=== PATIENT | female | born 1980 | race Caucasian/White ===

== ENCOUNTER → 2017-10-14 17:00 | Outpatient (CLI) | payer BC, OTHER, SELFPAY ==
[2017-10-15 12:40] LABS: Group B Strep DNA By PCR Negative (Negative); Internal Control PASS; Probe Check PASS; Specimen Processing Control PASS
== END ==
PROVIDERS: Family Provider Family Medicine; PCP Family Medicine; Visit Provider Obstetrics & Gynecology
DX: Z36.85 Encounter for antenatal screening for Streptococcus B (principal)
CPT/HCPCS: 87081; 87653

== ENCOUNTER 2017-11-01 06:00 | Outpatient (CLI) | payer BC, OTHER, SELFPAY ==
[2017-11-01 07:33] VITALS: BMI 32.8
--- NOTE | 2017-11-01 09:14 | OB.TRI.NOTE ---
History of Present Illness Was patient seen by the physician?: Yes Reason For Visit: R/O LABOR Date of Service: 11/01/17 Final TATY Source: US <20 weeks Gestational age: 38+ weeks History of Present Illness: 38+ week intrauterine presents with regular contractions. Denies leaking of fluid. care uneventful. Home Medications Medication Instructions Recorded Labetalol 100 mg PO BID 11/01/17 Prenatabs FA 1 tab PO DAILY 11/01/17 Zoloft 1 tab PO DAILY 11/01/17 Allergies No Known Allergies Allergy (Verified 11/01/17 07:35) NST - FHR Rate Baby A NST Reactive:: Yes Impression/Plan 38+ week intrauterine with false labor. No cervical change after several hours of observation. Contractions subsided. Released to home with routine follow-up and instructions.
== END 2017-11-01 09:30 | disposition home or self-care (01) ==
LOC: WPOUT 06:35 → WP 06:36
PROVIDERS: Family Provider Family Medicine; PCP Family Medicine; Visit Provider Obstetrics & Gynecology
DX: O47.1 False labor at or after 37 completed weeks of gestation (principal); Z3A.38 38 weeks gestation of pregnancy
CPT/HCPCS: 59025; 59050; 99218; G0378

== ENCOUNTER 2017-11-07 06:50 | Inpatient (IN) | payer BC, OTHER, SELFPAY ==
[2017-11-07 08:14] VITALS: BMI 32.9
[2017-11-07 08:20] LABS: ROM Internal Control Test YES-OK TO RESULT pt. (Internal QC)
[2017-11-07 08:22] LABS: ROM Patient Test POSITIVE (Negative)
[2017-11-07] MEDS: Lactated Ringers 1,000 ML 50 ML IV (08:57)
[2017-11-07 09:17] LABS: Hematocrit 36.4 % (37-47); Hemoglobin 12.1 g/dl (12.0-15.0); Mean Corp Hgb Conc 33.2 g/gl (32-36); Mean Corpuscular Hgb 32.2 pg (27.0-32.0); Mean Corpuscular Volume 96.8 fL (81-99); Mean Platelet Vol. 10.1 fl (6.2-12.0); Platelet Count 426 K/mm3 (150-450); RBC Distribution Width CV 13.9 % (11.6-14.6); RBC Distribution Width SD 47.4 fl (35.1-43.9); Red Blood Count 3.76 M/mm3 (4.2-5.4); Scan Indicated on CBC? Y/N NO; White Blood Count 13.4 K/mm3 (4.4-11.0)
[2017-11-07] MEDS: Ondansetron 4 MG/2 ML Vial IV (10:12)
[2017-11-07] MEDS: 0.9% Saline Lock 10 ML Syringe IV (10:12)
[2017-11-07] MEDS: fentaNYL-bupivacaine (epidural) 100 ML BAG EPIDURAL (11:19)
[2017-11-07] MEDS: Oxytocin 30 units/NS 500 ml 30 UNITS/500 ML IV.SOLN 334 UNITS IV (12:10)
--- NOTE | 2017-11-07 12:29 | PCM.OB.VAG ---
- Problem List (1) 39 weeks gestation of Status: Acute (2) Vacuum extractor delivery, delivered Status: Acute Vaginal Delivery Maternal Presentation: Spontaneous Rupture of Membranes Amniotic Membrane Rupture Type: Spontaneous at home Rupture of Membrane time: 11/07/17 0530h Amniotic Fluid Description: Clear Final TATY: 11/09/17 Final TATY Source: US <20 weeks Gestational age: 39 Weeks and 5 Days Bailey doctor who attended delivery (if requested by OB): Alisson Juarez Date of Procedure: 11/07/17 Pre-Operative Diagnosis: 39 5/7wga, SROM Post-Operative Diagnosis: 39 5/7wga, SROM Surgery/ Procedure Performed: Vacuum Assisted Vaginal Delivery Anesthesiologist: Dwayne Hawk Type of Anesthesia: Epidural Description of Procedure: Patient was FD/+3 station. She pushed to +4 station with bradycardia to 80s bpm. I advised her to proceed with vacuum delivery to expedite delivery. I reviewed with patient and spouse risk for scalp edema, scalp laceration, bleeding including cephalohematoma and subgaleal hemorrhage, facture, infection of laceration. She advised me to proceed. The fetus was direct OA. The Kiwi vacuum cap was placed at the flexion point and 500mmHg applied. She pushed over approximately 2 minutes to deliver the head in direct OA. There were no pop offs. The vacuum was released and the rest of the delivered with ease. The infant was placed on the maternal abdomen and stimulated. There was depressed respiratory effort thus the cord was doubly clamped and cut and he was assess further by the Pediatric Hospitalist. A second degree perineal laceration was repaired with 3-0 Vicryl Rapide. The fundus was firm at the umbilicus. There was excellent hemostasis. Presentation: Vertex Placental Delivery Description: Spontaneous Placenta Disposition: [facility] Cord Vessel Description: 3 Vessels Nuchal Cord Compression: Without compression Cord Gases drawn per routine: ABG, VBG Cord Entanglement: None Estimated Blood Loss: 350 mL A gender: Male (1 minute): 8 (5 minute): 9 Episiotomy Description: None Laceration: None Medications given after delivery: IV Pitocin
[2017-11-07] MEDS: Oxytocin 30 units/NS 500 ml 30 UNITS/500 ML IV.SOLN 167 UNITS IV (12:40)
[2017-11-07 16:50] VITALS: BP 111/63; PULSE 88; RESP 14; TEMP 36.5; O2SAT 99
[2017-11-07 20:40] VITALS: BP 130/78; PULSE 98; RESP 18; TEMP 36.7; O2SAT 98
[2017-11-07] MEDS: Famotidine 20 MG Tablet PO (22:28)
[2017-11-07] MEDS: Sertraline 50 MG Tablet PO (22:28)
[2017-11-08 01:00] VITALS: BP 112/79; PULSE 92; RESP 20; TEMP 36.5; O2SAT 97
[2017-11-08] MEDS: Naproxen 250 MG Tablet PO (01:17)
[2017-11-08 04:15] VITALS: BP 111/64; PULSE 82; RESP 16; TEMP 36.1
--- NOTE | 2017-11-08 07:19 | PN.OBGYN_ITS ---
Patient Problems: Active and Suspected Problems 39 weeks gestation of (Acute) Vacuum extractor delivery, delivered (Acute) Subjective: No issues overnight. She asks about continuing her blood pressure medication. She started it at 4-5 months , but believes she should have been on medication even before due to elevated BPs. She is sore, but feels well. is also nursing well. Objective: AVSS - Physical Exam General: Alert, Oriented x3, Cooperative, No apparent distress HEENT: Atraumatic, Normocephalic Lungs: Clear to auscultation, Normal air movement Cardiovascular: Regular rate, Regular Rhythm, Normal S1, Normal S2 Abdomen: Soft, Non Tender, Non-Distended, - - Fundus firm and nontender Extremities: No edema, No Calf Tenderness Neurological: Neuro grossly intact Psych/Mental Status: Normal Affect, Appropriate, Alert and oriented to time, place, person, mood and affect Vital Signs Temp Pulse Resp BP Pulse Ox 97.0 F L 82 16 111/64 97 11/08/17 04:15 11/08/17 04:15 11/08/17 04:15 11/08/17 04:15 11/08/17 01:00 Oxygen Delivery Method Room Air Weight: 87.09 kg Body Mass Index (BMI) 32.9 Intake and Output for Last 24 Hours 11/06/17 11/07/17 11/08/17 23:59 23:59 23:59 Output Total 1300 / 1300 Balance -1300 / -1300 Laboratory Tests Past 24 Hrs 11/07/17 11/07/17 11/07/17 07:50 08:55 08:55 WBC 13.4 H RBC 3.76 L Hgb 12.1 Hct 36.4 L MCV 96.8 MCH 32.2 H MCHC 33.2 RDW 13.9 RDW Differential 47.4 H Plt Count 426 MPV 10.1 Vag Amniotic Fld Detect POSITIVE H Blood Type AB POSITIVE Antibody Screen NEGATIVE Medical Necessity - Tobacco Use Smoking Status: Current every day smoker Assessment/Plan Active and Suspected Problems 39 weeks gestation of (Acute) Vacuum extractor delivery, delivered (Acute) 37yo P2 PPD#1 s/p VAVD doing well -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 BPs normal on medication and in immediate periods, however, anticipate fluid shifts with potential for BP elevation. Will plan to continue Labetalol on discharge and reassess at follow up. -Discussed with patient walking, self-care and stress management, dietary changes and smoking cessation as measure to treat elevated blood pressure also. She reports understanding -Rh positive, Rubella immune - -Will plan for discharge later today
[2017-11-08 07:23] VITALS: BP 116/75; PULSE 60; RESP 16; TEMP 36.7
--- NOTE | 2017-11-08 07:23 | DCINST_ITS ---
Discharge Diet: No Restrictions Discharge Activity: Return to Normal Activity, May Shower, May Take a Tub Bath May resume sexual activity in: 6 weeks Lifting Restrictions: 10-20lb Call your doctor if you observe: Fever of 101 or Higher, Inability to urinate, Inability to have a bowel movement, Using more than one pad per hour, Shortness of breath, Chest pain, Calf discomfort, Uncontrolled pain Suture Line Care: Avoid Pulling/Pushing Cleanse incision/area with: Soap & Water Additional Instructions: If you experience any of the following, contact your healthcare provider. * Bleeding that soaks a pad every hour for 2 hours * Fever 100.4 or higher * Unrelieved incision or abdominal pain * Swelling, redness, discharge or bleeding from your incision or episiotomy site * Your incision begins to separate * Problems urinating (including inability to urinate or burning while urinating) . * Visual changes * Severe headache * Flu-like symptoms * Pain or redness in one of both of your breasts * Pain, warmth, tenderness or swelling in your legs, especially the calf area * Frequent nausea and vomiting * Symptoms of depression or anxiety If you experience any of the following, call 911 or go to the nearest Emergency Room. * Chest pain * Problems breathing * Seizure activity * Partial or complete paralysis of a body part, slurred speech, weakness or drooping of the face, or a sudden inability to walk or hold your balance Allergies/Adverse Reactions: Allergies No Known Allergies Allergy (Verified 11/01/17 07:35) Medications to take at Discharge Labetalol 50 mg PO BID 11/01/17 Prenatabs FA 1 tab PO DAILY 11/01/17 Zoloft 1 tab PO DAILY 11/01/17 Ranitidine [Zantac] 150 mg PO BID 11/07/17 Naproxen [Naprosyn] 250 - 500 mg PO Q12H PRN PRN #30 tab 11/08/17 Senna/Docusate Sodium [Senokot-S] 1 - 2 tab PO DAILY PRN PRN #30 tab 11/08/17 The following prescriptions were given: Naproxen [Naprosyn] 250 - 500 mg PO Q12H PRN PRN #30 tab PRN Reason: MILD PAIN (-10/11) Senna/Docusate Sodium [Senokot-S] 1 - 2 tab PO DAILY PRN PRN #30 tab PRN Reason: Constipation Please Follow Up With: Steve Layton MD - Blood pressure check When: 1-2 weeks Please Follow Up With: Steve Layton MD - visit When: 6 weeks Primary Care Physician: Anita Kendrick PA-C [Primary Care Provider] -
[2017-11-08] MEDS: Famotidine 20 MG Tablet PO (10:14)
[2017-11-08 12:00] VITALS: BP 117/78; PULSE 85; RESP 16; TEMP 35.9
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
== END 2017-11-08 15:30 | disposition home or self-care (01) | DRG 774 ==
PROVIDERS: Admitting Provider Obstetrics & Gynecology; Family Provider Family Medicine; PCP Family Medicine; Visit Provider Obstetrics & Gynecology
DX: O76 Abnormality in fetal heart rate and rhythm complicating labor and delivery (principal); O10.92 Unspecified pre-existing hypertension complicating childbirth; Z37.0 Single live birth; O70.1 Second degree perineal laceration during delivery; O99.334 Smoking (tobacco) complicating childbirth; F17.200 Nicotine dependence, unspecified, uncomplicated; Z3A.39 39 weeks gestation of pregnancy
CPT/HCPCS: 84112; 85027; 86850; 86900; 99218; J7120; A4216; G0378; J2405

== ENCOUNTER → 2017-12-23 14:50 | Outpatient (CLI) | payer BC, OTHER, SELFPAY ==
[2017-12-29 10:06] LABS: HPV Reflexed? NOT INDICATED
== END ==
PROVIDERS: Family Provider Family Medicine; PCP Family Medicine; Visit Provider Obstetrics & Gynecology
DX: Z12.4 Encounter for screening for malignant neoplasm of cervix (principal)
CPT/HCPCS: 88175; G0145

== ENCOUNTER → 2020-05-02 10:30 | Outpatient (CLI) | payer BC, OTHER, SELFPAY ==
[2020-05-05 16:27] LABS: HPV Reflexed? NOT INDICATED
== END ==
PROVIDERS: PCP Family Medicine; Visit Provider Obstetrics & Gynecology
DX: Z12.4 Encounter for screening for malignant neoplasm of cervix (principal)
CPT/HCPCS: 88175; G0145